=== PATIENT | male | born 1970 | race Caucasian/White ===

== ENCOUNTER 2019-10-04 16:52 | Emergency (ER) | payer MEDICARE ==
[~2019-10-04] VITALS: Ht 160 cm; Wt 70.3 kg
[2019-10-04 16:55] VITALS: BP 153/100
--- NOTE | 2019-10-04 17:11 | NUR ---
PT BROUGHT BACK FROM TRIAGE WITH CHIEF COMPLAINT OF LEFT DENTAL PAIN STARTING 4 DAYS AGO.
--- NOTE | 2019-10-04 17:27 | NUR ---
DISCHARGE INSTRUCTIONS REVIEWED
== END 2019-10-04 17:46 | disposition home or self-care (01) ==
LOC: ED 17:00
DX: K08.89 Other specified disorders of teeth and supporting structures (principal)
CPT/HCPCS: 99283